=== PATIENT | female | born 1995 | race Caucasian/White ===

== ENCOUNTER 2024-01-01 07:19 | Emergency (ER) | payer MEDICAID ==
[~2024-01-01] VITALS: Ht 167.6 cm; Wt 71.0 kg
[2024-01-01 07:22] VITALS: TEMP 98.5
[2024-01-01] MEDS ORDERED: ketorolac trometh. 30mg/ml inj. IV ONE (08:10)
[2024-01-01] MEDS ORDERED: ondansetron/PF 4mg/2ml inj IV ONE (08:10)
[2024-01-01 08:31] LABS: BASOPHILS % (AUTO) 0.4 % (0-1); EOSINOPHILS % (AUTO) 0.3 % (0-6); HEMATOCRIT 41.8 % (35.0-45.0); HEMOGLOBIN 14.2 g/dl (12.0-16.0); LYMPHOCYTES # (AUTO) 1.2 X10'3 (1.1-4.8); LYMPHOCYTES % (AUTO) 10.4 % (21-51); MEAN CORPUSCULAR HEMOGLOBIN 30.4 PG (27.0-31.0); MEAN CORPUSCULAR HGB CONC 33.9 g/dL (33.0-36.5); MEAN CORPUSCULAR VOLUME 89.7 FL (78-98); MONOCYTES # (AUTO) 0.8 X10'3 (0-0.9); MONOCYTES % (AUTO) 7.2 % (2-12); NEUTROPHILS # (AUTO) 9.3 X10'3 (1.8-7.7); NEUTROPHILS % (AUTO) 81.7 % (42-75); PLATELET COUNT 209 X10'3 (140-440); RED BLOOD COUNT 4.66 X10'6 (4.20-5.60); RED CELL DISTRIBUTION WIDTH 12.4 % (11.5-14.5); WHITE BLOOD COUNT 11.4 X10'3 (4.5-11.0)
[2024-01-01 08:39] LABS: ALBUMIN 4.2 G/DL (3.4-5.0); ANION GAP 10 (8-16); BLOOD UREA NITROGEN 8 MG/DL (7-18); BUN/CREATININE RATIO 12.1 (10.0-20.0); CHLORIDE 105 MMOL/L (99-107); CREATININE 0.66 MG/DL (0.40-0.90); GLUCOSE 105 MG/DL (70-104); LIPASE 20 U/L (16-77); POTASSIUM 3.6 MMOL/L (3.5-5.1); SODIUM 140 MMOL/L (135-145); TOTAL CARBON DIOXIDE 24.8 MMOL/L (24-32); eCRCL 120 ML/MIN; eGFR > 90 ML/MIN
[2024-01-01 08:55] LABS: BILIRUBIN,URINE NEGATIVE (Neg); CLARITY,URINE CLOUDY (Clear); COLOR,URINE YELLOW (Yellow); GLUCOSE, URINE NEGATIVE (Neg); KETONES,URINE 15 mg/dl (Neg); LEUKOCYTE ESTERASE ,URINE LARGE (Neg); NITRITES, URINE POSITIVE (Neg); OCCULT BLOOD,URINE MODERATE (Neg); PROTEIN,URINE 30 mg/dl (Neg); UA COLLECTION TYPE CLN CATCH MIDSTREAM; UROBILINOGEN,URINE 0.2 E.U/dL (0.2-1.0)
[2024-01-01 08:58] LABS: URINE HCG NEGATIVE (NEG)
[2024-01-01 09:02] LABS: SQUAMOUS EPITHELIAL CELL,UR FEW /LPF (FEW); WBC,URINE TNTC /HPF (0-4)
[2024-01-01 09:03] LABS: BACTERIA,URINE 3+ /HPF (Neg); RBC,URINE 0-2 /HPF (0-2)
[2024-01-01 09:04] LABS: WBC CLUMPS,URINE FEW /HPF (NEGATIVE)
[2024-01-01] MEDS ORDERED: CefTRIAXone 2gm/D5W 50ml BAG 50 ML IV ONE (09:30)
[2024-01-01] MEDS ORDERED: ONDA4TAB12 PO (09:32)
[2024-01-01] MEDS ORDERED: CEFU250T95 PO (09:32)
[2024-01-01] MEDS ORDERED: CefTRIAXone 1000mg IM Kit (w/lidocaine diluent) IM ONE (09:35)
[2024-01-01 10:01] VITALS: BP 97/60; PULSE 80; RESP 18; O2SAT 99
== END 2024-01-01 10:16 | disposition home or self-care (01) ==
LOC: ER 07:21
DX: N39.0 Urinary tract infection, site not specified (principal); Z91.040 Latex allergy status; Z79.899 Other long term (current) drug therapy
CPT/HCPCS: 36415; 80048; 81001; 81025; 83690; 85025; 87077; 87088; 87186; 96372; 96374; 96375; 99284; J0696; J1885; J2405; C1758

== ENCOUNTER 2024-03-17 10:48 | Outpatient (CLI) | payer MEDICAID ==
[~2024-03-17 10:48] MED LIST: ONDA4TAB12 PO
== END 2024-03-17 23:59 | disposition home or self-care (01) ==
LOC: RAD 10:48
PROVIDERS: ATTEND Obstetrics & Gynecology
DX: O09.891 Supervision of other high risk pregnancies, first trimester (principal); Z3A.01 Less than 8 weeks gestation of pregnancy
CPT/HCPCS: 76801

== ENCOUNTER 2024-11-02 18:22 | Emergency (ER) | payer MEDICAID, SELFPAY ==
[~2024-11-02] VITALS: Ht 167.6 cm; Wt 75.0 kg
[~2024-11-02 18:22] MED LIST changes: +ONDA-243 PO; -ONDA4TAB12 PO
[2024-11-02 18:30] VITALS: BP 123/54; PULSE 85; RESP 18; TEMP 98; O2SAT 95
[2024-11-02] MEDS: acetaminophen 325mg tablet PO ONE (20:03)
== END 2024-11-02 20:08 | disposition home or self-care (01) ==
LOC: ER 18:23
DX: S50.02XA Contusion of left elbow, initial encounter (principal); S40.012A Contusion of left shoulder, initial encounter; Z91.040 Latex allergy status; Z79.899 Other long term (current) drug therapy; W19.XXXA Unspecified fall, initial encounter; Y93.89 Activity, other specified; Y92.89 Other specified places as the place of occurrence of the external cause; Y99.8 Other external cause status
CPT/HCPCS: 73060; 73080; 99284; A4565